=== PATIENT | female | born 1975 | race Hispanic/Latino ===

== ENCOUNTER 2021-03-05 10:59 | Emergency (ER) | payer MEDICAID ==
[~2021-03-05] VITALS: Ht 160 cm; Wt 88.5 kg
[2021-03-05 11:02] VITALS: BP 108/74
[2021-03-05] MEDS ORDERED: HYDROCODONE/ACETAMINOPHEN 10/325 MG TAB PO ONE (12:00)
[2021-03-05] MEDS ORDERED: NAPR-1180 PO (12:19)
[2021-03-05 12:47] VITALS: BP 144/81
== END 2021-03-05 12:48 | disposition home or self-care (01) ==
LOC: EDH 10:59
DX: M77.11 Lateral epicondylitis, right elbow (principal); E10.9 Type 1 diabetes mellitus without complications; M19.90 Unspecified osteoarthritis, unspecified site; Z90.710 Acquired absence of both cervix and uterus
CPT/HCPCS: 82948